=== PATIENT | male | born 1990 | race Caucasian/White ===

== ENCOUNTER 2016-10-20 16:00 | Emergency (ER) | payer OTHER ==
[~2016-10-20 16:00] MED LIST: NO HISTORICAL MEDS
--- NOTE | 2016-10-20 16:43 | EDDOCDS ---
Physician Documentation [facility] Name: Juanito Boyd Age: 26 yrs Sex: Male : 1990 Arrival Date: 10/20/2016 Time: 16:00 Bed I Private MD: Unknown Pcp Disposition: 10/20/16 16:31 Discharged to Home/Self Care. Impression: Dental caries, Dental caries, unspecified - broken tooth. - Condition is Stable. - Discharge Instructions: Dental Pain. - Prescriptions for [place] 5- 325 mg Oral Tablet - take 1 tablet by ORAL route every 6 hours As needed MDD: 4 tabs; 20 tablet. penicillin V potassium 500 mg Oral Tablet - take 1 tablet by ORAL route 4 times per day for 10 days; 40 tablet. - Medication Reconciliation, Local Pharmacy Hours form. - Follow up: Your, Dentist; When: Call to arrange an appointment; Reason: Continuance of care. - Problem is an ongoing problem. - Symptoms are unchanged. Historical: - Allergies: no known allergies; - Home Meds: 1. ibuprofen Unknown Oral Unknown every 4-6 hours (Last dose: 10/19/2016) - PMHx: none; - PSHx: Appendectomy; - Social history: Smoking status: Patient states was never smoker of tobacco. Patient/guardian denies using alcohol, street drugs, No barriers to communication noted, The patient speaks fluent Serbian, Speaks appropriately for age. - Family history: Not pertinent. - : The pt / caregiver states he / she is not on anticoagulants. Home medication list is obtained from the patient. - Exposure Risk Screening:: None identified. Vital Signs: 10/20 16:01 BP 156 / 95; Pulse 91; Resp 16; Temp 97.0(T); Pulse Ox 100% on R/A; Weight 97.52 kg / sew 214.99 lbs; Height 5 ft. 10 in. (177.80 cm); Pain 10; 16:01 Body Mass Index 30.85 (97.52 kg, 177.80 cm) sew Signatures: Mario Degroot, HOME HEALTH PROVIDER HOME HEALTH PROVIDER Kenia DegrootRN RN ld5 Lola Lund RN RN ttb MTDD
--- NOTE | 2016-10-20 16:43 | EDDOCDS ---
Nurse's Notes [facility] Name: Juanito Boyd Age: 26 yrs Sex: Male : 1990 Arrival Date: 10/20/2016 Time: 16:00 Bed I8 16 Private MD: Unknown Pcp Diagnosis: Dental caries;Dental caries, unspecified-broken tooth Presentation: 10/20 16:12 Presenting complaint: Patient states: left lower molar pain since last week. Adult ttb Sepsis Screening: The patient does not have new or worsening altered mentation. Patient's respiratory rate is less than 22. Systolic blood pressure is greater than 100. Patient has a qSOFA score of 0- Negative Sepsis Screen. Suicide/Homicide risk assessment- the patient denies having any suicidal and/or homicidal ideations and does not present with any other emotional, behavioral or mental health complaints. Status: Patient is not a social service agency director or dependent. Transition of care: patient was not received from another setting of care. 16:12 Acuity: PRIMO Level 5 ttb 16:12 Method Of Arrival: Walkin/Carried/Asstd ttb Triage Assessment: 16:13 General: Appears in no apparent distress, uncomfortable, well nourished, well groomed. ttb Pain: Location: left lower molar 06/19. HIV screening NA for this visit. EENT: Reports pain in left lower mlar. Respiratory: No deficits noted. Airway is patent Respiratory effort is even, unlabored. Derm: Skin is normal. Historical: - Allergies: no known allergies; - Home Meds: 1. ibuprofen Unknown Oral Unknown every 4-6 hours (Last dose: 10/19/2016) - PMHx: none; - PSHx: Appendectomy; - Social history: Smoking status: Patient states was never smoker of tobacco. Patient/guardian denies using alcohol, street drugs, No barriers to communication noted, The patient speaks fluent [place], Speaks appropriately for age. - Family history: Not pertinent. - : The pt / caregiver states he / she is not on anticoagulants. Home medication list is obtained from the patient. - Exposure Risk Screening:: None identified. Screenin:41 Screening information is obtained from the patient. Fall risk: No risks identified. ld5 Assistance ADL's: requires no assistance with activities of daily living. Abuse/DV Screen: The patient / caregiver reports he/she is: not in a situation that causes fear, pain or injury. Nutritional screening: No deficits noted. Advance Directives: There is no active DNR order. home support is adequate. Assessment: 16:41 General: Appears uncomfortable, Behavior is cooperative. Pain: Location: lower left ld5 second molar and lower left first molar Pain currently is 10 out of 10 on a pain scale. Neurological: Level of Consciousness is awake, alert. Respiratory: Airway is patent Respiratory effort is even, unlabored. Vital Signs: 16:01 BP 156 / 95; Pulse 91; Resp 16; Temp 97.0(T); Pulse Ox 100% on R/A; Weight 97.52 kg; sew Height 5 ft. 10 in. (177.80 cm); Pain 10/10; 16:01 Body Mass Index 30.85 (97.52 kg, 177.80 cm) [facility] [place]als: 16:01 Log In Time: October 20, 2016 at 16:00. [facility] [place] ED Course: 16:01 Patient visited by Kimi Rivera. [facility] [place] 16:01 Unknown Pcp is Private Physician. sew 16:01 Patient moved to Waiting sew 16:02 Patient visited by Kimi Rivera. sew 16:02 Patient moved to Pre RCE sew 16:13 Triage Initiated ttb 16:16 Mario Degroot FNP [facility]. ke 16:16 Patient moved to I8 / 16 ke 16:24 Patient visited by Mario Degroot FNP. ke 16:30 Your, Dentist is Referral Physician. ke 16:41 The patient / caregiver is instructed regarding the plan of care and ED course. Patient ld5 has correct armband on for positive identification. 16:41 No IV's were initiated during this patient's visit. No procedures done that require ld5 assistance. 16:43 Patient visited by Kneia Lynn RN. ld5 Order Results: There are currently no results for this order. Outcome: 16:31 Discharge ordered by Provider. ke 16:41 Discharge Assessment: Patient awake, alert and oriented x 3. No cognitive and/or ld5 functional deficits noted. Patient verbalized understanding of disposition instructions. patient administered narcotics - no. The following High Risk Discharge criteria are identified: None. Discharged to home ambulatory. Condition: stable. Discharge instructions given to patient, Instructed on discharge instructions, follow up and referral plans. medication usage, no driving heavy equipment, Demonstrated understanding of instructions, medications, Pt was receptive of discharge instructions/ teaching. Prescriptions given X 2. No special radiology studies were completed. Property :Personal belongings accompany Pt. 16:43 Patient left the ED. ld5 Signatures: Mario Degroot, TIRE CENTER SUPERVISOR Kenia DukeRN RN ld5 Miguel, Lola Mccann RN RN ttb MTDD
--- NOTE | 2016-10-22 17:43 | EDDOCDS ---
Physician Documentation [facility] Name: Juanito Boyd Age: 26 yrs Sex: Male : 1990 Arrival Date: 10/20/2016 Time: 16:00 Bed I8 Private MD: Unknown Pcp Disposition: 10/20/16 16:31 Discharged to Home/Self Care. Impression: Dental caries, Dental caries, unspecified - broken tooth. - Condition is Stable. - Discharge Instructions: Dental Pain. - Prescriptions for [place] 5- 325 mg Oral Tablet - take 1 tablet by ORAL route every 6 hours As needed MDD: 4 tabs; 20 tablet. penicillin V potassium 500 mg Oral Tablet - take 1 tablet by ORAL route 4 times per day for 10 days; 40 tablet. - Medication Reconciliation, Local Pharmacy Hours form. - Follow up: Your, Dentist; When: Call to arrange an appointment; Reason: Continuance of care. - Problem is an ongoing problem. - Symptoms are unchanged. Historical: - Allergies: no known allergies; - Home Meds: 1. ibuprofen Unknown Oral Unknown every 4-6 hours (Last dose: 10/19/2016) - PMHx: none; - PSHx: Appendectomy; - Social history: Smoking status: Patient states was never smoker of tobacco. Patient/guardian denies using alcohol, street drugs, No barriers to communication noted, The patient speaks fluent Kazakh, Speaks appropriately for age. - Family history: Not pertinent. - : The pt / caregiver states he / she is not on anticoagulants. Home medication list is obtained from the patient. - Exposure Risk Screening:: None identified. Vital Signs: 10/20 16:01 BP 156 / 95; Pulse 91; Resp 16; Temp 97.0(T); Pulse Ox 100% on R/A; Weight 97.52 kg / sew 214.99 lbs; Height 5 ft. 10 in. (177.80 cm); Pain 06/19; 16:01 Body Mass Index 30.85 (97.52 kg, 177.80 cm) sew MDM: 16:45 [facility]CLUDES [facility] Payment Agreement was scanned into [employer] and attached to record. gjb 10/21 10:39 T-Sheet-- Draft Copy was scanned into [employer] and attached to record. gb Signatures: Ginny Pelayo, Reg Reg gb Mario Degroot, Kenia StephensRN RN ld5 Lola Lund RN RN Yuli Yi The chart was reviewed and I authenticate all verbal orders and agree with the evaluation and treatment provided.Attachments: 10/20 16:45 COUNT INCLUDES THE [facility] Payment Agreement gjb 10/21 10:39 T-Sheet-- Draft Copy gb Chart Complete MTDD
--- NOTE | 2016-10-22 17:43 | EDDOCDS ---
Physician Documentation [facility] Name: Juanito Boyd Age: 26 yrs Sex: Male : 1990 Arrival Date: 10/20/2016 Time: 16:00 Bed I8 Private MD: Unknown Pcp Disposition: 10/20/16 16:31 Discharged to Home/Self Care. Impression: Dental caries, Dental caries, unspecified - broken tooth. - Condition is Stable. - Discharge Instructions: Dental Pain. - Prescriptions for [place] 5- 325 mg Oral Tablet - take 1 tablet by ORAL route every 6 hours As needed MDD: 4 tabs; 20 tablet. penicillin V potassium 500 mg Oral Tablet - take 1 tablet by ORAL route 4 times per day for 10 days; 40 tablet. - Medication Reconciliation, Local Pharmacy Hours form. - Follow up: Your, Dentist; When: Call to arrange an appointment; Reason: Continuance of care. - Problem is an ongoing problem. - Symptoms are unchanged. Historical: - Allergies: no known allergies; - Home Meds: 1. ibuprofen Unknown Oral Unknown every 4-6 hours (Last dose: 10/19/2016) - PMHx: none; - PSHx: Appendectomy; - Social history: Smoking status: Patient states was never smoker of tobacco. Patient/guardian denies using alcohol, street drugs, No barriers to communication noted, The patient speaks fluent Icelandic, Speaks appropriately for age. - Family history: Not pertinent. - : The pt / caregiver states he / she is not on anticoagulants. Home medication list is obtained from the patient. - Exposure Risk Screening:: None identified. Vital Signs: 10/20 16:01 BP 156 / 95; Pulse 91; Resp 16; Temp 97.0(T); Pulse Ox 100% on R/A; Weight 97.52 kg / sew 214.99 lbs; Height 5 ft. 10 in. (177.80 cm); Pain 06/19; 16:01 Body Mass Index 30.85 (97.52 kg, 177.80 cm) sew MDM: 16:45 [facility] Payment Agreement was scanned into [employer] and attached to record. gjb 10/21 10:39 T-Sheet-- Draft Copy was scanned into [employer] and attached to record. gb Signatures: Ginny Pelayo, Reg Reg gb Mario Degroot, Kenia StephensRN RN ld5 Lola Lund RN RN Yuli Yi The chart was reviewed and I authenticate all verbal orders and agree with the evaluation and treatment provided.Attachments: 10/20 16:45 [facility] Payment Agreement gjb 10/21 10:39 T-Sheet-- Draft Copy gb Chart Complete MTDD
--- NOTE | 2016-10-22 17:43 | EDDOCDS ---
Nurse's Notes [facility] Name: Juanito Boyd Age: 26 yrs Sex: Male : 1990 Arrival Date: 10/20/2016 Time: 16:00 Bed I8 16 Private MD: Unknown Pcp Diagnosis: Dental caries;Dental caries, unspecified-broken tooth Presentation: 10/20 16:12 Presenting complaint: Patient states: left lower molar pain since last week. Adult ttb Sepsis Screening: The patient does not have new or worsening altered mentation. Patient's respiratory rate is less than 22. Systolic blood pressure is greater than 100. Patient has a qSOFA score of 0- Negative Sepsis Screen. Suicide/Homicide risk assessment- the patient denies having any suicidal and/or homicidal ideations and does not present with any other emotional, behavioral or mental health complaints. Status: Patient is not a poultry field service technician or dependent. Transition of care: patient was not received from another setting of care. 16:12 Acuity: PRIMO Level 5 ttb 16:12 Method Of Arrival: Walkin/Carried/Asstd ttb Triage Assessment: 16:13 General: Appears in no apparent distress, uncomfortable, well nourished, well groomed. ttb Pain: Location: left lower molar 06/19. HIV screening NA for this visit. EENT: Reports pain in left lower mlar. Respiratory: No deficits noted. Airway is patent Respiratory effort is even, unlabored. Derm: Skin is normal. Historical: - Allergies: no known allergies; - Home Meds: 1. ibuprofen Unknown Oral Unknown every 4-6 hours (Last dose: 10/19/2016) - PMHx: none; - PSHx: Appendectomy; - Social history: Smoking status: Patient states was never smoker of tobacco. Patient/guardian denies using alcohol, street drugs, No barriers to communication noted, The patient speaks fluent Chadian, Speaks appropriately for age. - Family history: Not pertinent. - : The pt / caregiver states he / she is not on anticoagulants. Home medication list is obtained from the patient. - Exposure Risk Screening:: None identified. Screenin:41 Screening information is obtained from the patient. Fall risk: No risks identified. ld5 Assistance ADL's: requires no assistance with activities of daily living. Abuse/DV Screen: The patient / caregiver reports he/she is: not in a situation that causes fear, pain or injury. Nutritional screening: No deficits noted. Advance Directives: There is no active DNR order. home support is adequate. Assessment: 16:41 General: Appears uncomfortable, Behavior is cooperative. Pain: Location: lower left ld5 second molar and lower left first molar Pain currently is 10 out of 10 on a pain scale. Neurological: Level of Consciousness is awake, alert. Respiratory: Airway is patent Respiratory effort is even, unlabored. Vital Signs: 16:01 BP 156 / 95; Pulse 91; Resp 16; Temp 97.0(T); Pulse Ox 100% on R/A; Weight 97.52 kg; sew Height 5 ft. 10 in. (177.80 cm); Pain 10/10; 16:01 Body Mass Index 30.85 (97.52 kg, 177.80 cm) [facility] [place]als: 16:01 Log In Time: October 20, 2016 at 16:00. [facility] [place] Course: 16:01 Patient visited by Kimi Rivera. sew 16:01 Unknown Pcp is Private Physician. sew 16:01 Patient moved to Waiting sew 16:02 Patient visited by Kimi Rivera. sew 16:02 Patient moved to Pre RCE sew 16:13 Triage Initiated ttb 16:16 Mario Degroot FNP [facility] ke 16:16 Patient moved to I8 / 16 ke 16:24 Patient visited by Mario Degroot FNP. ke 16:30 Your, Dentist is Referral Physician. ke 16:41 The patient / caregiver is instructed regarding the plan of care and ED course. Patient ld5 has correct armband on for positive identification. 16:41 No IV's were initiated during this patient's visit. No procedures done that require ld5 assistance. 16:43 Patient visited by Kenia Lynn RN. ld5 16:45 [facility] [place] Payment Agreement was scanned into [employer] and attached to record. gjb 10/21 10:39 T-Sheet-- Draft Copy was scanned into [employer] and attached to record. gb Order Results: There are currently no results for this order. Outcome: 10/20 16:31 Discharge ordered by Provider. ke 16:41 Discharge Assessment: Patient awake, alert and oriented x 3. No cognitive and/or ld5 functional deficits noted. Patient verbalized understanding of disposition instructions. patient administered narcotics - no. The following High Risk Discharge criteria are identified: None. Discharged to home ambulatory. Condition: stable. Discharge instructions given to patient, Instructed on discharge instructions, follow up and referral plans. medication usage, no driving heavy equipment, Demonstrated understanding of instructions, medications, Pt was receptive of discharge instructions/ teaching. Prescriptions given X 2. No special radiology studies were completed. Property :Personal belongings accompany Pt. 16:43 Patient left the ED. ld5 Signatures: Ginny Pelayo, Reg Reg gb Mario Degroot, BIODIESEL DIVISION MANAGER BIODIESEL DIVISION MANAGERKenia OlivaresRN RN ld5 Kimi Rivera Teresa, RN RN Yuli Yi Chart Complete NITO
== END 2016-10-20 16:43 | disposition home or self-care (01) ==
LOC: M ED 16:00
DX: K08.89 Other specified disorders of teeth and supporting structures (principal)

== ENCOUNTER 2016-10-30 07:49 | Emergency (ER) | payer OTHER ==
--- NOTE | 2016-10-30 08:46 | REP ---
CT CERVICAL SPINE WITHOUT CONTRAST: HISTORY: Trauma. There is no acute fracture or subluxation. There is no disc bulge or herniation. The neural foramina are patent. The intervertebral discs are normal in height. Calcifications are present in the right tonsil. This is secondary to previous inflammatory disease. IMPRESSION: There is no acute fracture or subluxation. Signed by Issac Mccord MD 10/30/2016 09:10 A
--- NOTE | 2016-10-30 09:20 | REP ---
AP PELVIS AND LEFT HIP: 10/30/2016. Clinical history: Trauma. Comparison: CT abdomen and pelvis 05/31/2012. Findings: Pelvic ring is intact. SI joints, sacral ala and foramina unremarkable. Iliac wings, acetabuli, pubic rami and symphysis pubis intact. There is a bone island in the femoral head on the right. Some small osteophytes present on the left. I do not see fracture, AVN, joint space narrowing or abnormal soft tissue calcifications. Impression: 1. No fracture of the pelvis or hips. No evidence of AVN. Minor spurring femoral head and neck region. Nothing acute. Signed by Tim Ross MD 10/30/2016 05:15 P
--- NOTE | 2016-10-30 09:21 | EDDOCDS ---
Physician Documentation [facility] Name: Juanito Boyd Age: 26 yrs Sex: Male : 1990 Arrival Date: 10/30/2016 Time: 07:49 Bed I1 / M1 Private MD: Disposition: 10/30/16 09:11 Discharged to Home/Self Care. Impression: Strain of muscle, fascia and tendon at neck level, Contusion of left hip. - Condition is Stable. - Discharge Instructions: Cervical Sprain, Hip Pain. - Prescriptions for Ibuprofen 600 mg Oral Tablet - take 1 tablet by ORAL route every 6 hours As needed take with food; 30 tablet. Cyclobenzaprine 10 mg Oral Tablet - take 1 tablet by ORAL route 3 times per day As needed; 15 tablet. - Work Release Form - 2 day, Medication Reconciliation, Local Pharmacy Hours form. - Follow up: Private Physician; When: 4 - 5 days; Reason: Recheck today's complaints, Continuance of care. - Problem is new. - Symptoms are unchanged. Historical: - Allergies: no known allergies; - Home Meds: 1. none - PMHx: none; - PSHx: Appendectomy; - Social history: Smoking status: Patient states was never smoker of tobacco. No barriers to communication noted, Speaks appropriately for age. - Family history: Not pertinent. - : The pt / caregiver states he / she is not on anticoagulants. Home medication list is obtained from the patient. - Exposure Risk Screening:: None identified. Vital Signs: 10/30 08:01 BP 172 / 100; Pulse 90; Resp 16; Temp 98.2(O); Pulse Ox 98% on R/A; Weight 97.52 kg / ml6 214.99 lbs (R); Height 5 ft. 10 in. (177.80 cm) (R); Pain 4/10; 09:19 BP 147 / 96; Pulse 94; Resp 18; Temp 98.4(O); Pulse Ox 97% on R/A; kc3 08:01 Body Mass Index 30.85 (97.52 kg, 177.80 cm) ml6 MDM: 08:20 CT Spine,Cervical W/o Contrast Ordered. EDMS 08:20 Hip,AP,LAT to include Pelvis Ordered. EDMS 08:23 Financial registration complete. lg 09:03 [facility] Payment Agreement was scanned into [employer] and attached to record. lg Signatures: Dispatcher [employer] EDBossman He, Reg Reg lg Mario Degroot, INCIDENT COORDINATOR INCIDENT COORDINATOR Clinton Veloz, RN RN ml6 Eliz AcevedoRN RN kc3 The chart was reviewed and I authenticate all verbal orders and agree with the evaluation and treatment provided.Attachments: 09:03 [facility] Payment Agreement lg MTDD
--- NOTE | 2016-10-30 09:21 | EDDOCDS ---
Nurse's Notes [facility] Name: Juanito Boyd Age: 26 yrs Sex: Male : 1990 Arrival Date: 10/30/2016 Time: 07:49 Bed I1 / M1 Private MD: Diagnosis: Strain of muscle, fascia and tendon at neck level;Contusion of left hip Presentation: 10/30 07:59 Presenting complaint: Patient states: states slipped and fell down 13 steps carrying ml6 his dog, states fell on left hip and slid down steps, c/o pain in left hip and neck. Risk Factors No acute neurological deficit is noted. Adult Sepsis Screening: The patient does not have new or worsening altered mentation. Patient's respiratory rate is less than 22. Systolic blood pressure is greater than 100. Patient has a qSOFA score of 0- Negative Sepsis Screen. Suicide/Homicide risk assessment- the patient denies having any suicidal and/or homicidal ideations and does not present with any other emotional, behavioral or mental health complaints. Status: Patient is not a instructional support services director or dependent. Transition of care: patient was not received from another setting of care. Mechanism of Injury: Fall. 07:59 Acuity: PRIMO Level 3 ml6 07:59 Method Of Arrival: Walkin/Carried/Asstd ml6 Triage Assessment: 08:02 General: Appears in no apparent distress, Behavior is appropriate for age, cooperative. ml6 Pain: Location: neck Pain currently is 4 out of 10 on a pain scale. Pain does not radiate. Quality of pain is described as aching, Pain began 1 hour ago Is continuous Alleviated by nothing. Aggravated by increased activity. HIV screening NA for this visit Offered previously. Neurological: No deficits noted. Cardiovascular: No deficits noted. Capillary refill < 3 seconds is brisk in bilateral fingers toes. Respiratory: No deficits noted. Musculoskeletal: cervical spine is tender. Circulation, motion, and sensation intact Capillary refill < 3 seconds is brisk in bilateral fingers toes Signs and Symptoms of Compartment Syndrome: no signs of compartment syndrome Reports pain in neck. Historical: - Allergies: no known allergies; - Home Meds: 1. none - PMHx: none; - PSHx: Appendectomy; - Social history: Smoking status: Patient states was never smoker of tobacco. No barriers to communication noted, Speaks appropriately for age. - Family history: Not pertinent. - : The pt / caregiver states he / she is not on anticoagulants. Home medication list is obtained from the patient. - Exposure Risk Screening:: None identified. Screenin:27 Screening information is obtained from the patient. Fall risk: No risks identified. ml6 Assistance ADL's: requires no assistance with activities of daily living. Abuse/DV Screen: The patient / caregiver reports he/she is: not in a situation that causes fear, pain or injury. Nutritional screening: No deficits noted. Advance Directives: Currently, there is no health care proxy. home support is adequate. Assessment: 08:02 General: see triage assessment. Neurological: Level of Consciousness is awake, alert, ml6 Oriented to person, place, time. Neurological: Weight Trainer are equal bilaterally Moves all extremities. Full function Gait is steady, Speech is normal, Facial symmetry appears normal, Pupils are PERRLA. Neurological: Denies weakness blurred vision dizziness, difficulty swallowing, paresthesias numbness headache photophobia diplopia. Cardiovascular: No deficits noted. Respiratory: No deficits noted. 09:18 General: Appears in no apparent distress, comfortable, Behavior is appropriate for age, kc3 cooperative. Neurological: Level of Consciousness is awake, alert, obeys commands, Oriented to person, place, time. Respiratory: Respiratory effort is even, unlabored. Derm: Skin is pink, warm & dry. Vital Signs: 08:01 BP 172 / 100; Pulse 90; Resp 16; Temp 98.2(O); Pulse Ox 98% on R/A; Weight 97.52 kg ml6 (R); Height 5 ft. 10 in. (177.80 cm) (R); Pain 4/10; 09:19 BP 147 / 96; Pulse 94; Resp 18; Temp 98.4(O); Pulse Ox 97% on R/A; kc3 08:01 Body Mass Index 30.85 (97.52 kg, 177.80 cm) 6 Vitals: 08:01 Log In Time: October 30, 2016 at 07:47. 6 ED Course: 07:50 Patient visited by Oliver Dutton. mm15 07:50 Patient moved to Waiting mm15 08:01 Triage Initiated ml6 08:02 Patient moved to I1 / M1 [facility] 08:13 [facility] Degroot FNP [facility]. ke 08:13 Patient visited by Mario Degroot FNP. ke 08:13 Patient visited by Mario Degroot FNP. ke 08:33 Frannie cervical collar applied and checked by provider. ml6 08:39 Patient visited by Mario Degroot FNP. ke 09:01 Patient visited by Mario Degroot FNP. ke 09:02 The patient / caregiver is instructed regarding the plan of care and ED course. kc3 09:03 Patient name changed from Juanito\S\M\S\Boyd\S\ to Juanito\S\Alfonso\S\Boyd. EDMS 09:03 [facility] [place] Payment Agreement was scanned into [email or web address] and attached to record. 09:19 No IV's were initiated during this patient's visit. No procedures done that require kc3 assistance. 09:19 CT Spine,Cervical W/o Contrast Returned. EDMS Order Results: Radiology Order: CT Spine,Cervical W/o Contrast Test: CT Spine,Cervical W/o Contrast REASON FOR EXAMINATION: Trauma; CT CERVICAL SPINE WITHOUT CONTRAST:; ; HISTORY: Trauma.; ; There is no acute fracture or subluxation. There is no disc bulge or herniation.; The neural foramina are patent. The intervertebral discs are normal in height.; Calcifications are present in the right tonsil. This is secondary to previous; inflammatory disease.; ; IMPRESSION:; ; There is no acute fracture or subluxation.; ; ; Signed by; Issac Mccord MD 10/30/2016 09:10 A; Outcome: 09:03 CT Study completed. kc3 09:11 Discharge ordered by Provider. ke 09:19 Discharge Assessment: Patient awake, alert and oriented x 3. No cognitive and/or kc3 functional deficits noted. Patient verbalized understanding of disposition instructions. patient administered narcotics - no. The following High Risk Discharge criteria are identified: None. Discharged to home ambulatory. Condition: stable. Discharge instructions given to patient, Instructed on discharge instructions, follow up and referral plans. medication usage, Demonstrated understanding of instructions, medications, Pt was receptive of discharge instructions/ teaching. Prescriptions given X 2, Work note provided to patient. Property :Personal belongings accompany Pt. 09:20 Patient left the ED. kc3 Signatures: Dispatcher [employer] EDAZ Bossman Benz, Matt Reg Mario Degroot FNP FNP ke Lowe, Clinton, RN RN ml6 Oliver Dutton mm15 Eliz Acevedo,RN RN kc3 HALEYD
--- NOTE | 2016-11-01 10:21 | EDDOCDS ---
Physician Documentation [facility] Name: Juanito Boyd Age: 26 yrs Sex: Male : 1990 Arrival Date: 10/30/2016 Time: 07:49 Bed I1 / M1 Private MD: Disposition: 10/30/16 09:11 Discharged to Home/Self Care. Impression: Strain of muscle, fascia and tendon at neck level, Contusion of left hip. - Condition is Stable. - Discharge Instructions: Cervical Sprain, Hip Pain. - Prescriptions for Ibuprofen 600 mg Oral Tablet - take 1 tablet by ORAL route every 6 hours As needed take with food; 30 tablet. Cyclobenzaprine 10 mg Oral Tablet - take 1 tablet by ORAL route 3 times per day As needed; 15 tablet. - Work Release Form - 2 day, Medication Reconciliation, Local Pharmacy Hours form. - Follow up: Private Physician; When: 4 - 5 days; Reason: Recheck today's complaints, Continuance of care. - Problem is new. - Symptoms are unchanged. Historical: - Allergies: no known allergies; - Home Meds: 1. none - PMHx: none; - PSHx: Appendectomy; - Social history: Smoking status: Patient states was never smoker of tobacco. No barriers to communication noted, Speaks appropriately for age. - Family history: Not pertinent. - : The pt / caregiver states he / she is not on anticoagulants. Home medication list is obtained from the patient. - Exposure Risk Screening:: None identified. Vital Signs: 10/30 08:01 BP 172 / 100; Pulse 90; Resp 16; Temp 98.2(O); Pulse Ox 98% on R/A; Weight 97.52 kg / ml6 214.99 lbs (R); Height 5 ft. 10 in. (177.80 cm) (R); Pain 4/10; 09:19 BP 147 / 96; Pulse 94; Resp 18; Temp 98.4(O); Pulse Ox 97% on R/A; kc3 08:01 Body Mass Index 30.85 (97.52 kg, 177.80 cm) ml6 MDM: 08:20 CT Spine,Cervical W/o Contrast Ordered. EDMS 08:20 Hip,AP,LAT to include Pelvis Ordered. EDMS 08:23 Financial registration complete. lg 09:03 [facility] Payment Agreement was scanned into [email or web address] and attached to record. lg 14:56 T-Sheet-- Draft Copy was scanned into [employer] and attached to record. gb Signatures: Dispatcher [employer] EDMS Ginny Pelayo, Reg Reg gb Bossman Benz, Reg Reg lg Mario Degroot, PRODUCT SAFETY TEST ENGINEER PRODUCT SAFETY TEST ENGINEER Clinton Veloz, RN RN ml6 Eliz AcevedoRN RN kc3 The chart was reviewed and I authenticate all verbal orders and agree with the evaluation and treatment provided.Attachments: 09:03 [facility] Payment Agreement lg 14:56 T-Sheet-- Draft Copy gb Chart Complete MTDD
--- NOTE | 2016-11-01 10:21 | EDDOCDS ---
Nurse's Notes [facility] Name: Juanito Boyd Age: 26 yrs Sex: Male : 1990 Arrival Date: 10/30/2016 Time: 07:49 Bed I1 / M1 Private MD: Diagnosis: Strain of muscle, fascia and tendon at neck level;Contusion of left hip Presentation: 10/30 07:59 Presenting complaint: Patient states: states slipped and fell down 13 steps carrying ml6 his dog, states fell on left hip and slid down steps, c/o pain in left hip and neck. Risk Factors No acute neurological deficit is noted. Adult Sepsis Screening: The patient does not have new or worsening altered mentation. Patient's respiratory rate is less than 22. Systolic blood pressure is greater than 100. Patient has a qSOFA score of 0- Negative Sepsis Screen. Suicide/Homicide risk assessment- the patient denies having any suicidal and/or homicidal ideations and does not present with any other emotional, behavioral or mental health complaints. Status: Patient is not a guest services lead or dependent. Transition of care: patient was not received from another setting of care. Mechanism of Injury: Fall. 07:59 Acuity: PRIMO Level 3 ml6 07:59 Method Of Arrival: Walkin/Carried/Asstd ml6 Triage Assessment: 08:02 General: Appears in no apparent distress, Behavior is appropriate for age, cooperative. ml6 Pain: Location: neck Pain currently is 4 out of 10 on a pain scale. Pain does not radiate. Quality of pain is described as aching, Pain began 1 hour ago Is continuous Alleviated by nothing. Aggravated by increased activity. HIV screening NA for this visit Offered previously. Neurological: No deficits noted. Cardiovascular: No deficits noted. Capillary refill < 3 seconds is brisk in bilateral fingers toes. Respiratory: No deficits noted. Musculoskeletal: cervical spine is tender. Circulation, motion, and sensation intact Capillary refill < 3 seconds is brisk in bilateral fingers toes Signs and Symptoms of Compartment Syndrome: no signs of compartment syndrome Reports pain in neck. Historical: - Allergies: no known allergies; - Home Meds: 1. none - PMHx: none; - PSHx: Appendectomy; - Social history: Smoking status: Patient states was never smoker of tobacco. No barriers to communication noted, Speaks appropriately for age. - Family history: Not pertinent. - : The pt / caregiver states he / she is not on anticoagulants. Home medication list is obtained from the patient. - Exposure Risk Screening:: None identified. Screenin:27 Screening information is obtained from the patient. Fall risk: No risks identified. ml6 Assistance ADL's: requires no assistance with activities of daily living. Abuse/DV Screen: The patient / caregiver reports he/she is: not in a situation that causes fear, pain or injury. Nutritional screening: No deficits noted. Advance Directives: Currently, there is no health care proxy. home support is adequate. Assessment: 08:02 General: see triage assessment. Neurological: Level of Consciousness is awake, alert, ml6 Oriented to person, place, time. Neurological: Glass Smoother are equal bilaterally Moves all extremities. Full function Gait is steady, Speech is normal, Facial symmetry appears normal, Pupils are PERRLA. Neurological: Denies weakness blurred vision dizziness, difficulty swallowing, paresthesias numbness headache photophobia diplopia. Cardiovascular: No deficits noted. Respiratory: No deficits noted. 09:18 General: Appears in no apparent distress, comfortable, Behavior is appropriate for age, kc3 cooperative. Neurological: Level of Consciousness is awake, alert, obeys commands, Oriented to person, place, time. Respiratory: Respiratory effort is even, unlabored. Derm: Skin is pink, warm & dry. Vital Signs: 08:01 BP 172 / 100; Pulse 90; Resp 16; Temp 98.2(O); Pulse Ox 98% on R/A; Weight 97.52 kg ml6 (R); Height 5 ft. 10 in. (177.80 cm) (R); Pain 4/10; 09:19 BP 147 / 96; Pulse 94; Resp 18; Temp 98.4(O); Pulse Ox 97% on R/A; kc3 08:01 Body Mass Index 30.85 (97.52 kg, 177.80 cm) 6 Vitals: 08:01 Log In Time: October 30, 2016 at 07:47. 6 ED Course: 07:50 Patient visited by Oliver Dutton. mm15 07:50 Patient moved to Waiting mm15 08:01 Triage Initiated ml6 08:02 Patient moved to I1 / M1 [facility] 08:13 [facility] Degroot FNP [facility] ke 08:13 Patient visited by Mario Degroot FNP. ke 08:13 Patient visited by Mario Degroot FNP. ke 08:33 Frannie cervical collar applied and checked by provider. ml6 08:39 Patient visited by Mario Degroot FNP. ke 09:01 Patient visited by Mario Degroot FNP. ke 09:02 The patient / caregiver is instructed regarding the plan of care and ED course. kc3 09:03 Patient name changed from Juanito\S\M\S\Boyd\S\ to Juanito\S\Alfonso\S\Boyd. EDMS 09:03 [facility] [place] Agreement was scanned into [employer] and attached to record. lg 09:19 No IV's were initiated during this patient's visit. No procedures done that require kc3 assistance. 09:19 CT Spine,Cervical W/o Contrast Returned. EDMS 09:55 Hip,AP,LAT to include Pelvis Returned. EDMS 14:56 T-Sheet-- Draft Copy was scanned into [employer] and attached to record. gb Order Results: Radiology Order: CT Spine,Cervical W/o Contrast Test: CT Spine,Cervical W/o Contrast REASON FOR EXAMINATION: Trauma; CT CERVICAL SPINE WITHOUT CONTRAST:; ; HISTORY: Trauma.; ; There is no acute fracture or subluxation. There is no disc bulge or herniation.; The neural foramina are patent. The intervertebral discs are normal in height.; Calcifications are present in the right tonsil. This is secondary to previous; inflammatory disease.; ; IMPRESSION:; ; There is no acute fracture or subluxation.; ; ; Signed by; Issac Mccord MD 10/30/2016 09:10 A; Radiology Order: Hip,AP,LAT to include Pelvis Test: Hip,AP,LAT to include Pelvis REASON FOR EXAMINATION: Trauma; AP PELVIS AND LEFT HIP: 10/30/2016.; ; Clinical history: Trauma.; ; Comparison: CT abdomen and pelvis 05/31/2012.; ; Findings: Pelvic ring is intact. SI joints, sacral ala and foramina; unremarkable. Iliac wings, acetabuli, pubic rami and symphysis pubis intact.; There is a bone island in the femoral head on the right. Some small osteophytes; present on the left. I do not see fracture, AVN, joint space narrowing or; abnormal soft tissue calcifications.; ; Impression:; ; 1. No fracture of the pelvis or hips. No evidence of AVN. Minor spurring; femoral head and neck region. Nothing acute.; ; ; Signed by; Tim Ross MD 10/30/2016 05:15 P; Outcome: 09:03 CT Study completed. kc3 09:11 Discharge ordered by Provider. ke 09:19 Discharge Assessment: Patient awake, alert and oriented x 3. No cognitive and/or kc3 functional deficits noted. Patient verbalized understanding of disposition instructions. patient administered narcotics - no. The following High Risk Discharge criteria are identified: None. Discharged to home ambulatory. Condition: stable. Discharge instructions given to patient, Instructed on discharge instructions, follow up and referral plans. medication usage, Demonstrated understanding of instructions, medications, Pt was receptive of discharge instructions/ teaching. Prescriptions given X 2, Work note provided to patient. Property :Personal belongings accompany Pt. 09:20 Patient left the ED. kc3 Signatures: Dispatcher MedHost EDMS Ginny Pelayo, Reg Reg gb Bossman Benz, Reg Reg lg Mario Degroot, CHIEF DIGITAL OFFICER CHIEF DIGITAL OFFICER Clinton Veloz, RN RN ml6 Oliver Dutton mm15 Eliz Acevedo,RN RN kc3 Chart Complete MTDD
--- NOTE | 2016-11-01 10:21 | EDDOCDS ---
Physician Documentation [facility] Name: Juanito Boyd Age: 26 yrs Sex: Male : 1990 Arrival Date: 10/30/2016 Time: 07:49 Bed I1 / M1 Private MD: Disposition: 10/30/16 09:11 Discharged to Home/Self Care. Impression: Strain of muscle, fascia and tendon at neck level, Contusion of left hip. - Condition is Stable. - Discharge Instructions: Cervical Sprain, Hip Pain. - Prescriptions for Ibuprofen 600 mg Oral Tablet - take 1 tablet by ORAL route every 6 hours As needed take with food; 30 tablet. Cyclobenzaprine 10 mg Oral Tablet - take 1 tablet by ORAL route 3 times per day As needed; 15 tablet. - Work Release Form - 2 day, Medication Reconciliation, Local Pharmacy Hours form. - Follow up: Private Physician; When: 4 - 5 days; Reason: Recheck today's complaints, Continuance of care. - Problem is new. - Symptoms are unchanged. Historical: - Allergies: no known allergies; - Home Meds: 1. none - PMHx: none; - PSHx: Appendectomy; - Social history: Smoking status: Patient states was never smoker of tobacco. No barriers to communication noted, Speaks appropriately for age. - Family history: Not pertinent. - : The pt / caregiver states he / she is not on anticoagulants. Home medication list is obtained from the patient. - Exposure Risk Screening:: None identified. Vital Signs: 10/30 08:01 BP 172 / 100; Pulse 90; Resp 16; Temp 98.2(O); Pulse Ox 98% on R/A; Weight 97.52 kg / ml6 214.99 lbs (R); Height 5 ft. 10 in. (177.80 cm) (R); Pain 4/10; 09:19 BP 147 / 96; Pulse 94; Resp 18; Temp 98.4(O); Pulse Ox 97% on R/A; kc3 08:01 Body Mass Index 30.85 (97.52 kg, 177.80 cm) ml6 MDM: 08:20 CT Spine,Cervical W/o Contrast Ordered. EDMS 08:20 Hip,AP,LAT to include Pelvis Ordered. EDMS 08:23 Financial registration complete. lg 09:03 [facility] Payment Agreement was scanned into [employer] and attached to record. lg 14:56 T-Sheet-- Draft Copy was scanned into [employer] and attached to record. gb Signatures: Dispatcher [employer] EDMS Ginny Pelayo, Reg Reg gb Bossman Benz, Reg Reg lg Mario Degroot, FIREMAN FIREMAN Clinton Veloz, RN RN ml6 Eliz AcevedoRN RN kc3 The chart was reviewed and I authenticate all verbal orders and agree with the evaluation and treatment provided.Attachments: 09:03 [facility] Payment Agreement lg 14:56 T-Sheet-- Draft Copy gb Chart Complete MTDD
== END 2016-10-30 09:20 | disposition home or self-care (01) ==
LOC: M ED 07:49
DX: S13.9XXA Sprain of joints and ligaments of unspecified parts of neck, initial encounter (principal); S70.02XA Contusion of left hip, initial encounter; W10.9XXA Fall (on) (from) unspecified stairs and steps, initial encounter; Y92.019 Unspecified place in single-family (private) house as the place of occurrence of the external cause; Y93.9 Activity, unspecified; Y99.9 Unspecified external cause status

== ENCOUNTER → 2016-12-21 | Outpatient (CLI) | payer OTHER ==
[~2016-12-21] MED LIST changes: +E-Z PAQUE 60% w/v SUSP 355ML BOTTLE As Ordered ONE; +E-Z-GAS II EFFERVESCENT PACKET (SODIUM BICARB./CITRIC ACID/SIMETHICONE) As Ordered ONE; +E-Z-HD 98% w/w 340GM SUSP BTL As Ordered ONE
--- NOTE | 2016-12-21 13:17 | REP ---
BARIUM SWALLOW, ESOPHAGRAM WITH PA CHEST: 12/21/2016. Clinical history: Regurgitation of food, reflux symptoms. No comparison study. Findings: The fishing line winding machine operator PA chest shows lung celaya well inflated and clear. Heart, mediastinal and hilar contours normal. Airway intact. Bones unremarkable. The AP and lateral CINE esophagram images show normal elevation of the cricopharyngeus muscle with no laryngeal penetration or aspiration. The thoracic esophagus shows no stricture, mass or any abnormal extrinsic mass impression with prone oblique swallows demonstrated. No hiatal hernia. Only minimal dysmotility noted with some secondary contractions. Those portions of the stomach seen on this study were unremarkable. There were a few episodes of reflux observed fluoroscopically during the examination. Impression: 1. There is some mild dysmotility of the thoracic esophagus without persistent stricture or mucosal abnormality. No mass or extrinsic mass effect seen. 2. Intermittent reflux observed through a patulous gastroesophageal junction without hiatal hernia. 3. The normal oral pharyngeal transfer noted promptly with appropriate elevation of the cricopharyngeus and no cervical esophageal stricture. 4. Fluoroscopy time: 2 min 2 sec. Signed by Tim Ross MD 12/21/2016 03:00 P
== END ==
LOC: M RAD 07:51
PROVIDERS: ATTEND Family Medicine
DX: R11.10 Vomiting, unspecified (principal)

== ENCOUNTER → 2017-03-21 | Outpatient (REF) | payer OTHER ==
[~2017-03-21] MED LIST changes: +ALLE60TA69 PO; -E-Z PAQUE 60% w/v SUSP 355ML BOTTLE As Ordered ONE; -E-Z-GAS II EFFERVESCENT PACKET (SODIUM BICARB./CITRIC ACID/SIMETHICONE) As Ordered ONE; -E-Z-HD 98% w/w 340GM SUSP BTL As Ordered ONE
[2017-03-21 16:21] LABS: ALBUMIN 4.3 GM/DL (3.2-5.2); ALKALINE PHOSPHATASE 81 U/L (45-117); ALT/SGPT 30 U/L (12-78); ANION GAP 5 MEQ/L (8-16); AST/SGOT 17 U/L (15-37); BILIRUBIN,TOTAL 0.7 MG/DL (0.2-1.0); BLOOD UREA NITROGEN 10 MG/DL (7-18); CALCIUM LEVEL 9.2 MG/DL (8.5-10.1); CARBON DIOXIDE LEVEL 31 MEQ/L (21-32); CHLORIDE LEVEL 105 MEQ/L (98-107); CHOLESTEROL LEVEL 165 MG/DL (<200); GLOMERULAR FILTRATION RATE > 60.0 (>60); GLUCOSE, FASTING 78 MG/DL (70-105); POTASSIUM SERUM 4.4 MEQ/L (3.5-5.1); SODIUM LEVEL 141 MEQ/L (136-145); TOTAL PROTEIN 7.6 GM/DL (6.4-8.2); TRIGLYCERIDES LEVEL 118 MG/DL (<150)
== END ==
LOC: M LABDRAW1 15:19
PROVIDERS: ATTEND Family Medicine
DX: E66.9 Obesity, unspecified (principal)

== ENCOUNTER → 2017-03-26 | Outpatient (CLI) | payer OTHER ==
--- NOTE | 2017-04-01 07:43 | SLEEPCENT ---
DATE OF PROCEDURE: 03/26/2017 ORDERED BY: RONY Grady Nocturnal polysomnography was performed for the titration of pressure therapy in this patient with obstructive sleep apnea syndrome intolerant of an auto titratable device. The patient was diagnosed based on home testing in 2015. For testing, the patient was fit with a ResMed Mirage FX nasal mask of standard size. 5 cm of water pressure were applied to the circuit and the lights were extinguished. 8 hours and 4 minutes of data were reviewed. There were 399 minutes of sleep identified. Sleep latency was prolonged at 69 minutes. Rapid eye movement (REM) latency was normal at 78 minutes. Sleep architecture improved with optimal pressure therapy. There were 4 REM periods appreciated. Overall sleep efficiency was good at 83.4%. The patient's EKG showed a sinus rhythm with an average heart rate of 76 beats per minute. EEG showed reasonably normal waveforms for awake and sleep stages. Respiratory events were found best palliated with CPAP at pressure of 6. CPAP tolerance was good. IMPRESSION: Obstructive sleep apnea syndrome (G47.33). RECOMMENDATION: Nightly use of pressure therapy 6 cm of water.
== END ==
LOC: M SLEEP 20:02
PROVIDERS: ATTEND Nurse Practitioner Adult Health
DX: G47.33 Obstructive sleep apnea (adult) (pediatric) (principal)

== ENCOUNTER 2017-05-21 07:33 | Day surgery (SDC) | payer OTHER ==
[~2017-05-21] VITALS: Ht 177.8 cm; Wt 117.9 kg
[~2017-05-21 07:33] MED LIST changes: +LIDOCAINE 2% INJ 100 MG/5 ML SDV (FOR ANES.) As Ordered ONE; +LIDOCAINE W/EPINEPHRINE 1% 20ML VIAL As Ordered ONE; +METHYLENE BLUE 0.5% (5MG/ML) 10 ML AMP (PROVAYBLUE)(Q9968 PER 1MG) As Ordered ONE; +MIDAZOLAM INJ 2 MG/2 ML VIAL (J2250) As Ordered ONE; +OXYMETAZOLINE NASAL SPRAY (AFRIN) As Ordered ONE; +PROPOFOL 200 MG/20 ML VIAL As Ordered ONE; +fentaNYL 100 MCG/2 ML INJECTION (J3010) As Ordered ONE
[2017-05-21] MEDS ORDERED: LIDOCAINE W/EPINEPHRINE 1% 20ML VIAL As Ordered ONE ×2 (08:13→08:14)
[2017-05-21] MEDS ORDERED: fentaNYL 100 MCG/2 ML INJECTION (J3010) As Ordered ONE (08:43)
[2017-05-21] MEDS ORDERED: LABETALOL HCL 100 MG/20 ML VIAL As Ordered ONE (08:54)
[2017-05-21] MEDS ORDERED: ONDANSETRON 4MG/2ML VIAL (J2405) As Ordered ONE (09:04)
[2017-05-21] MEDS ORDERED: dexameTHASONE 4 MG/ML 1ML VIAL (J1100) As Ordered ONE (09:04)
[2017-05-21] MEDS ORDERED: PERCOCET 5MG/325MG TAB PO PRN ×2 (10:00)
[2017-05-21] MEDS ORDERED: LR 1,000 ML IV SCH (10:00)
[2017-05-21] MEDS ORDERED: ONDANSETRON 4MG/2ML VIAL (J2405) IV PRN (10:00)
[2017-05-21] MEDS ORDERED: fentaNYL 100 MCG/2 ML INJECTION (J3010) IV PRN (10:00)
[2017-05-21] MEDS ORDERED: LABETALOL HCL 100 MG/20 ML VIAL IV SCH (10:00)
[2017-05-21] MEDS ORDERED: IBUPROFEN 800 MG TAB PO PRN (10:00)
[2017-05-21 12:25] VITALS: BP 135/95
--- NOTE | 2017-05-21 23:26 | RO ---
DATE OF PROCEDURE: 05/21/2017 PREOPERATIVE DIAGNOSES: 1. Deviated septum. 2. Chronic rhinitis. POSTOPERATIVE DIAGNOSES: 1. Deviated septum. 2. Chronic rhinitis. OPERATIVE PROCEDURE: Septoplasty. Partial reduction of inferior turbinates. SURGEON: Robby Gavin MD DOUBLE NEEDLE OPERATOR: ANESTHESIA: General endotracheal. INDICATIONS: A 27-year-old with a long history of nasal obstruction. DESCRIPTION OF PROCEDURE: With satisfactory general endotracheal anesthesia administrated, the patient placed in the usual position for head and neck surgery. Nose was prepared for surgery by placing cotton-soaked pledgets with Afrin solution into the nasal cavity bilaterally. 1% Xylocaine with 1:100,000 epinephrine was used to inject the nasal septum and inferior turbinates. A throat pack was placed. A Rip incision was made on the left side of the nose. A mucoperichondrial flap and envelope was created on the left side of the nasal septum and carried down to the junction of the bony and cartilaginous septum. This was then with an elevator, and an envelope was then created on the right side of the septum. A Efrain scissors was used to make a cut high in the perpendicular plate in the midportion of the vomer, and a central segment of the bony septum was resected. Next, with the round knife on the Gallia elevator, a strip of cartilage was resected from the floor of the nose, mobilizing the quadrilateral cartilage and creating a swinging door. Then, a central segment of cartilaginous septum was resected, preserving a 1 cm dorsal and caudal strut. Double-action rongeur was used to take down deflected portions of the perpendicular plate, as well. Finally, the maxillary crest spur was taken down after elevating mucoperiosteum off both sides of it with a chisel. A segment of the resected cartilage was morselized and placed back into the septal envelope. The incision was closed using an interrupted #5-0 chromic suture. Then, a #4-0 plain suture was placed in a [id number] fashion through the two leaves of mucoperichondrium to appose them. Next, the inferior turbinates were medially infractured. A #15 blade was used to make an incision on the anterior tip of the inferior turbinate. With a Gallia elevator, a mucoperiosteal tunnel was created on the medial side of the turbinate. Then, the microdebrider with a 2.9 mm blade was inserted into the tunnel, and the underlying turbinate bone was weakened and partially resected using the microdebrider. Then, the turbinate was laterally outfractured. The posteroinferior tip of the turbinate was then cauterized with suction cautery. Completing the surgery, Kaiser splints were placed into the nose and sewn to the columella with a #2-0 Prolene suture. The pharyngeal pack was removed. Throat suctioned. The patient was then awakened, extubated, sent to recovery in satisfactory condition. He will be discharged home on Tylox for pain and doxycycline 100 mg twice a day. He will seen back in the office in 3 days.
== END 2017-05-21 11:55 | disposition home or self-care (01) ==
LOC: M SDC 07:33
PROVIDERS: ATTEND Specialist
DX: J34.2 Deviated nasal septum (principal); J31.0 Chronic rhinitis; K21.9 Gastro-esophageal reflux disease without esophagitis; G47.30 Sleep apnea, unspecified; Z79.899 Other long term (current) drug therapy

== ENCOUNTER 2017-08-18 16:47 | Emergency (ER) | payer OTHER ==
[~2017-08-18] VITALS: Ht 177.8 cm; Wt 118.2 kg
[~2017-08-18 16:47] MED LIST changes: -ZOFR4TAB3 PO
[2017-08-18] MEDS ORDERED: NS 1,000 ML IV SCH (17:44)
[2017-08-18] MEDS ORDERED: GASTROGRAFIN SOLUTION 30ML (Q9963) As Ordered ONE (17:52)
[2017-08-18] MEDS ORDERED: GASTROGRAFIN SOLUTION 30ML (Q9963) PO ONE ×2 (18:00→18:30)
[2017-08-18] MEDS ORDERED: MORPHINE 4 MG/ML 1ML SYRINGE IV ONE (18:00)
[2017-08-18 18:04] LABS: BASO % 0.4 % (0.0-1.0); EOS % 0.4 % (0.0-3.0); IMMATURE GRANULOCYTE % 0.4 % (0-0); LYMPH # 2.3 10^3/uL (1.5-6.5); LYMPH % 25.8 % (24.0-44.0); MEAN CORPUSCULAR HEMOGLOBIN 29.3 pg (27.0-33.0); MEAN CORPUSCULAR HGB CONC 34.5 g/dl (32.0-36.5); MONO # 1.8 10^3/uL (0.0-0.8); MONO % 19.4 % (0.0-5.0); NEUTROPHILS # 4.9 10^3/uL (1.8-7.7); NEUTROPHILS % 53.6 % (36.0-66.0); PLATELET COUNT, AUTOMATED 306 10^3/uL (150-450); RED CELL DISTRIBUTION WIDTH 12.1 % (11.5-14.5); WHITE BLOOD COUNT 9.1 10^3/uL (4.0-10.0)
[2017-08-18 18:21] LABS: ALBUMIN/GLOBULIN RATIO 0.87 (1.00-1.93); ALKALINE PHOSPHATASE 65 U/L (45-117); ALT/SGPT 39 U/L (12-78); ANION GAP 9 MEQ/L (8-16); AST/SGOT 18 U/L (7-37); BILIRUBIN,DIRECT 0.2 MG/DL (0.0-0.2); BILIRUBIN,TOTAL 0.8 MG/DL (0.2-1.0); BLOOD UREA NITROGEN 16 MG/DL (7-18); CALCIUM LEVEL 8.9 MG/DL (8.5-10.1); CARBON DIOXIDE LEVEL 27 MEQ/L (21-32); CHLORIDE LEVEL 101 MEQ/L (98-107); CREATININE FOR GFR 1.09 MG/DL (0.70-1.30); GLOMERULAR FILTRATION RATE > 60.0 (>60); GLUCOSE, FASTING 102 MG/DL (70-105); POTASSIUM SERUM 3.5 MEQ/L (3.5-5.1); SODIUM LEVEL 137 MEQ/L (136-145); TOTAL PROTEIN 8.6 GM/DL (6.4-8.2)
[2017-08-18] MEDS ORDERED: ISOVUE-370 76% 100ML VIAL (Q9967) As Ordered ONE (19:10)
[2017-08-18 19:35] LABS: MUCUS, URINE RFX MODERATE (NEGATIVE); SPECIFIC GRAVITY UR AUTO RFX 1.028 (1.002-1.035); SQUAM EPITHELIAL CELL UR AURFX 0 /HPF (0-6)
--- NOTE | 2017-08-18 20:10 | REPUSA ---
CT of the abdomen and pelvis with contrast Clinical statement: Pain. Technique: Multiple axial CT images were obtained from the base of the lungs through the floor of the pelvis utilizing 5 mm axial slices after administration of oral and nonionic intravenous contrast. C oronal and sagittal reconstructions were also obtained. Comparison: 05/31/2012. Findings: Chest: The visualized lung bases are clear. Abdomen: The liver, spleen, pancreas, kidneys, gallbladder, and adrenal glands are unremarkable. The aorta is within normal limits. There is no evidence of abdominal lymphadenopathy or ascites. Pelvis: There is mild fluid distention of the proximal small bowel. There is no focal evidence of obs truction. The urinary bladder is within normal limits. The other pelvic structures appear grossly int act. There is no evidence of pelvic lymphadenopathy or ascites. Bones: There are no suspicious osseous abnormalities seen. Impression: 1. Mild small bowel ileus. No focal obstructive or inflammatory bowel changes.
[2017-08-18] MEDS ORDERED: ZOFR4TAB3 PO (20:46)
[2017-08-18 20:58] VITALS: BP 131/92
== END 2017-08-18 21:13 | disposition home or self-care (01) ==
LOC: M ED 16:47
DX: K56.7 Ileus, unspecified (principal); Z79.899 Other long term (current) drug therapy
CPT/HCPCS: 74177; 80048; 80076; 81001; 83690; 85025; 87507; 96374; 99284; Q9963; Q9967

== ENCOUNTER → 2017-08-18 | Outpatient (CLI) | payer OTHER ==
[~2017-08-18] MED LIST changes: -LIDOCAINE 2% INJ 100 MG/5 ML SDV (FOR ANES.) As Ordered ONE; -LIDOCAINE W/EPINEPHRINE 1% 20ML VIAL As Ordered ONE; -METHYLENE BLUE 0.5% (5MG/ML) 10 ML AMP (PROVAYBLUE)(Q9968 PER 1MG) As Ordered ONE; -MIDAZOLAM INJ 2 MG/2 ML VIAL (J2250) As Ordered ONE; -OXYMETAZOLINE NASAL SPRAY (AFRIN) As Ordered ONE; -PROPOFOL 200 MG/20 ML VIAL As Ordered ONE; +ZOFR4TAB3 PO; -fentaNYL 100 MCG/2 ML INJECTION (J3010) As Ordered ONE
--- NOTE | 2017-08-19 14:52 | REP ---
REASON: Epigastric tenderness. Supine and upright views of the abdomen show a few mildly dilated gas filled small bowel loops with air fluid levels seen in the left upper quadrant. There is no free air. The accompanying frontal view of the chest is within normal limits. IMPRESSION: Ileus versus early small bowel obstruction. Correlate clinically with appropriate followup. Signed by Buck Castellano DO 08/19/2017 02:57 P
== END ==
LOC: M WUC 16:11
PROVIDERS: ATTEND Physician Assistant
DX: R10.816 Epigastric abdominal tenderness (principal)

== ENCOUNTER → 2017-08-18 | Outpatient (CLI) | payer OTHER ==
[2017-08-18 18:21] LABS: BASO % 0.4 % (0.0-1.0); EOS % 0.3 % (0.0-3.0); IMMATURE GRANULOCYTE % 0.5 % (0-0); LYMPH # 2.3 10^3/uL (1.5-6.5); LYMPH % 23.8 % (24.0-44.0); MEAN CORPUSCULAR HGB CONC 33.9 g/dl (32.0-36.5); MEAN CORPUSCULAR VOLUME 85.4 fl (80.0-96.0); MONO # 1.8 10^3/uL (0.0-0.8); MONO % 18.3 % (0.0-5.0); NEUTROPHILS # 5.4 10^3/uL (1.8-7.7); NEUTROPHILS % 56.7 % (36.0-66.0); PLATELET COUNT, AUTOMATED 308 10^3/uL (150-450); RED CELL DISTRIBUTION WIDTH 12.2 % (11.5-14.5); WHITE BLOOD COUNT 9.6 10^3/uL (4.0-10.0)
[2017-08-18 18:29] LABS: ALBUMIN 4.1 GM/DL (3.2-5.2); ALKALINE PHOSPHATASE 66 U/L (45-117); ALT/SGPT 38 U/L (12-78); ANION GAP 8 MEQ/L (8-16); AST/SGOT 21 U/L (7-37); BILIRUBIN,TOTAL 0.9 MG/DL (0.2-1.0); BLOOD UREA NITROGEN 17 MG/DL (7-18); CALCIUM LEVEL 9.1 MG/DL (8.5-10.1); CARBON DIOXIDE LEVEL 30 MEQ/L (21-32); CHLORIDE LEVEL 99 MEQ/L (98-107); CREATININE FOR GFR 1.24 MG/DL (0.70-1.30); GLOMERULAR FILTRATION RATE > 60.0 (>60); GLUCOSE, FASTING 105 MG/DL (70-105); POTASSIUM SERUM 3.9 MEQ/L (3.5-5.1); SODIUM LEVEL 137 MEQ/L (136-145); TOTAL PROTEIN 8.2 GM/DL (6.4-8.2)
== END ==
LOC: M WUC 16:06
PROVIDERS: ATTEND Physician Assistant
DX: R10.816 Epigastric abdominal tenderness (principal)

== ENCOUNTER 2017-08-28 10:26 | Emergency (ER) | payer OTHER ==
[~2017-08-28] VITALS: Ht 177.8 cm; Wt 118.2 kg
[~2017-08-28 10:26] MED LIST changes: +ZOFR4TAB3 PO
[2017-08-28] MEDS ORDERED: PREPPAD EX (10:37)
[2017-08-28] MEDS ORDERED: MORPHINE 4 MG/ML 1ML SYRINGE IV ONE (11:30)
[2017-08-28 12:05] LABS: BASO # 0.1 10^3/uL (0.0-0.2); BASO % 0.4 % (0.0-1.0); EOS # 0.1 10^3/uL (0.0-0.50); EOS % 0.8 % (0.0-3.0); IMMATURE GRANULOCYTE % 0.6 % (0-0); LYMPH # 1.8 10^3/uL (1.5-6.5); LYMPH % 12.6 % (24.0-44.0); MEAN CORPUSCULAR HEMOGLOBIN 29.4 pg (27.0-33.0); MEAN CORPUSCULAR HGB CONC 34.1 g/dl (32.0-36.5); MEAN CORPUSCULAR VOLUME 86.1 fl (80.0-96.0); MONO # 1.6 10^3/uL (0.0-0.8); MONO % 11.4 % (0.0-5.0); NEUTROPHILS # 10.5 10^3/uL (1.8-7.7); NEUTROPHILS % 74.2 % (36.0-66.0); PLATELET COUNT, AUTOMATED 416 10^3/uL (150-450); RED CELL DISTRIBUTION WIDTH 11.9 % (11.5-14.5); WHITE BLOOD COUNT 14.2 10^3/uL (4.0-10.0)
[2017-08-28 12:30] LABS: ALBUMIN 3.8 GM/DL (3.2-5.2); ALBUMIN/GLOBULIN RATIO 0.93 (1.00-1.93); ALKALINE PHOSPHATASE 54 U/L (45-117); ALT/SGPT 27 U/L (12-78); ANION GAP 8 MEQ/L (8-16); AST/SGOT 18 U/L (7-37); BILIRUBIN,TOTAL 0.8 MG/DL (0.2-1.0); BLOOD UREA NITROGEN 9 MG/DL (7-18); CALCIUM LEVEL 8.8 MG/DL (8.5-10.1); CARBON DIOXIDE LEVEL 30 MEQ/L (21-32); CHLORIDE LEVEL 101 MEQ/L (98-107); CREATININE FOR GFR 0.94 MG/DL (0.70-1.30); GLOMERULAR FILTRATION RATE > 60.0 (>60); GLUCOSE, FASTING 92 MG/DL (70-105); POTASSIUM SERUM 4.1 MEQ/L (3.5-5.1); SODIUM LEVEL 139 MEQ/L (136-145); TOTAL PROTEIN 7.9 GM/DL (6.4-8.2)
[2017-08-28] MEDS ORDERED: ISOVUE-370 76% 100ML VIAL (Q9967) As Ordered ONE (12:54)
--- NOTE | 2017-08-28 14:52 | REP ---
CT PELVIS WITH IV CONTRAST: CT pelvis performed with 100 mL of Isovue 370 contrast. Sagittal and coronal reconstruction images are performed. In the posterior perianal region predominantly on the left side there edema and focal phlegmonous change. There does appear to be a small fluid collection consistent with an abscess measuring approximately 17 x 12 mm. Just inferior to that is a separate 1 cm pocket of fluid. A mildly enlarged right external iliac lymph node measures 1.4 cm in short axis. Other smaller bilateral inguinal lymph nodes are present. Urinary bladder is unremarkable. Remaining pelvic structures are essentially unremarkable. There are metallic clips in the right lower quadrant near the cecum. Visualized osseous structures are unremarkable. IMPRESSION: Posterior perianal phlegmonous change with two small pockets of fluid likely representing small abscess collections. Signed by Toan Abdi MD 08/28/2017 05:27 P
[2017-08-28] MEDS ORDERED: BACT800T5 PO (15:26)
[2017-08-28 16:02] VITALS: BP 149/98
== END 2017-08-28 16:22 | disposition home or self-care (01) ==
LOC: M ED 10:26
DX: K61.0 Anal abscess (principal)
CPT/HCPCS: 72193; 80053; 85025; 96374; 99284; Q9967

== ENCOUNTER 2017-12-21 13:20 | Emergency (ER) | payer OTHER | END 2017-12-21 15:41 | disposition home or self-care (01) | LOC: M ED 13:20 | DX: S46.811A Strain of other muscles, fascia and tendons at shoulder and upper arm level, right arm, initial encounter (principal); X50.0XXA Overexertion from strenuous movement or load, initial encounter; Y92.89 Other specified places as the place of occurrence of the external cause | CPT/HCPCS: 99283 ==

== ENCOUNTER 2018-01-08 12:03 | Emergency (ER) | payer OTHER | END 2018-01-08 14:56 | disposition home or self-care (01) | LOC: M ED 12:03 | DX: S60.151A Contusion of right little finger with damage to nail, initial encounter (principal); W22.09XA Striking against other stationary object, initial encounter; Y92.89 Other specified places as the place of occurrence of the external cause | CPT/HCPCS: 73130 ==

== ENCOUNTER 2018-03-05 07:36 | Emergency (ER) | payer OTHER | END 2018-03-05 08:51 | disposition home or self-care (01) | LOC: M ED 07:36 | DX: J06.9 Acute upper respiratory infection, unspecified (principal) | CPT/HCPCS: 99282 ==

== ENCOUNTER 2018-03-08 07:37 | Emergency (ER) | payer OTHER ==
[2018-03-08] MEDS: IPRATROPIUM 0.5MG/ALBUTEROL 2.5MG INH SOL UD 3ML (DUONEB)(J7620) NEB (08:38)
== END 2018-03-08 09:25 | disposition home or self-care (01) ==
LOC: M ED 07:37
DX: J45.901 Unspecified asthma with (acute) exacerbation (principal); J20.9 Acute bronchitis, unspecified; G47.33 Obstructive sleep apnea (adult) (pediatric); Z79.2 Long term (current) use of antibiotics; Z79.899 Other long term (current) drug therapy
CPT/HCPCS: 71046

== ENCOUNTER → 2020-02-10 | Outpatient (CLI) | payer OTHER, SELFPAY ==
[~2020-02-10] MED LIST changes: +BACT800T5 PO; +CEFD1CAP8; +IBUP-1022 PO; +MAGICMW SSP; +MUCI600T31 PO; +PREPPAD EX; +ROBA500T PO; +TESS100C PO; +VENTAER INH; +ZITHTAB PO; +ZOFR4TAB14 PO; -ZOFR4TAB3 PO
== END ==
LOC: M LABSMTC 12:33
PROVIDERS: ATTEND Family Medicine
DX: Z11.59 Encounter for screening for other viral diseases (principal); Z03.818 Encounter for observation for suspected exposure to other biological agents ruled out
CPT/HCPCS: C9803; U0003

== ENCOUNTER → 2020-07-05 | Outpatient (REF) | payer SELFPAY ==
[2020-07-05 16:56] LABS: APPEARANCE, URINE CLEAR (CLEAR); BACTERIA, URINE AUTO NEGATIVE (NEGATIVE); BILIRUBIN, URINE AUTO NEGATIVE (NEGATIVE); BLOOD, URINE BLOOD NEGATIVE (NEGATIVE); COLOR, URINE YELLOW (YELLOW); GLUCOSE, URINE (UA) AUTO NEGATIVE (NEGATIVE); KETONE, URINE AUTO NEGATIVE (NEGATIVE); LEUKOCYTE ESTERASE, URINE AUTO NEGATIVE (NEGATIVE); MUCUS, URINE SMALL (NEGATIVE); NITRITE, URINE AUTO NEGATIVE (NEGATIVE); PROTEIN, URINE AUTO NEGATIVE (NEGATIVE); RBC, URINE AUTO 0 /HPF (0-3); SPECIFIC GRAVITY URINE AUTO 1.024 (1.002-1.035); SQUAMOUS EPITHELIAL CELL UR AU 0 /HPF (0-6); UROBILINOGEN, URINE AUTO 0.2 mg/dL (0.0-2.0); WBC, URINE AUTO 1 /HPF (0-3)
== END ==
LOC: M LAB REF 16:19
PROVIDERS: ATTEND Physician Assistant Medical
DX: N39.0 Urinary tract infection, site not specified (principal)

== ENCOUNTER → 2020-08-27 | Outpatient (REF) | payer OTHER, SELFPAY | LOC: M LAB REF 19:25 | PROVIDERS: ATTEND Physician Assistant | DX: Z20.828 Contact with and (suspected) exposure to other viral communicable diseases (principal); Z11.59 Encounter for screening for other viral diseases ==

== ENCOUNTER → 2020-12-29 | Outpatient (CLI) | payer SELFPAY | LOC: M LABSMTC 11:54 | PROVIDERS: ATTEND Pediatrics | DX: Z20.822 Contact with and (suspected) exposure to COVID-19 (principal) ==

== ENCOUNTER 2021-08-04 21:34 | Inpatient (IN) | payer OTHER, SELFPAY ==
[~2021-08-04] VITALS: Ht 177.8 cm; Wt 120.7 kg
[~2021-08-04 21:34] MED LIST changes: -CEFD1CAP8; +CEFD300C41
[2021-08-04] MEDS ORDERED: KETOROLAC 30 MG/ML 1ML VIAL IV ONE (22:25)
[2021-08-04] MEDS ORDERED: methylPREDNISolone 125MG 2ML VIAL IV ONE (22:25)
[2021-08-04] MEDS ORDERED: ACETAMINOPHEN TAB 650MG DOSE (2X325MG) PO ONE (22:25)
[2021-08-04] MEDS ORDERED: COMBIVENT RESPIMAT 100-20MCG INHALER 4GM INH SCH (22:25)
[2021-08-04 23:23] LABS: BASO % 0.7 % (0.0-1.0); EOS % 0.2 % (0.0-3.0); HEMATOCRIT 45.8 % (42.0-52.0); HEMOGLOBIN 15.5 g/dl (13.5-17.5); LYMPH % 22.1 % (24.0-44.0); MEAN CORPUSCULAR HEMOGLOBIN 28.9 pg (27.0-33.0); MEAN CORPUSCULAR HGB CONC 33.8 g/dl (32.0-36.5); MEAN CORPUSCULAR VOLUME 85.4 fl (80.0-96.0); MONO # 0.4 10^3/uL (0.0-0.8); MONO % 8.3 % (2.0-8.0); NEUTROPHILS % 67.6 % (36.0-66.0); PLATELET COUNT, AUTOMATED 220 10^3/uL (150-450); RED BLOOD COUNT 5.36 10^6/uL (4.30-6.10); WHITE BLOOD COUNT 4.5 10^3/uL (4.0-10.0)
[2021-08-04 23:24] LABS: VENOUS BASE EXCESS 0.9 (-2.0-2.0); VENOUS HCO3 25.4 MEQ/L (23.0-27.0); VENOUS O2 SATURATION 55.5 % (60.0-80.0); VENOUS PARTIAL PRESSURE CO2 40.1 mmHg (38.0-50.0); VENOUS PARTIAL PRESSURE O2 26.7 mmHg (30.0-50.0); VENOUS PH 7.419 UNITS (7.330-7.430); VENOUS STANDARD HCO3 24.1 MEQ/L; VENOUS TOTAL CO2 26.6 MEQ/L (24.0-28.0)
[2021-08-04 23:52] LABS: ALBUMIN 3.4 GM/DL (3.2-5.2); ALT/SGPT 34 U/L (12-78); BILIRUBIN,DIRECT 0.3 MG/DL (0.0-0.2); BILIRUBIN,TOTAL 0.7 MG/DL (0.2-1.0); BLOOD UREA NITROGEN 17 MG/DL (7-18); CALCIUM LEVEL 8.3 MG/DL (8.5-10.1); CARBON DIOXIDE LEVEL 29 MEQ/L (21-32); CHLORIDE LEVEL 100 MEQ/L (98-107); CREATININE FOR GFR 1.21 MG/DL (0.70-1.30); GLOMERULAR FILTRATION RATE > 60.0 (>60); GLUCOSE, FASTING 104 MG/DL (70-100); SODIUM LEVEL 137 MEQ/L (136-145); TOTAL PROTEIN 7.5 GM/DL (6.4-8.2)
[2021-08-05 00:05] LABS: RSV AMPLIFICATION NEGATIVE (NEGATIVE)
[2021-08-05] MEDS ORDERED: ZINC1TAB2 PO (01:59)
[2021-08-05] MEDS ORDERED: C 50TAB PO (01:59)
[2021-08-05] MEDS ORDERED: D31000TA2 PO (01:59)
[2021-08-05] MEDS ORDERED: HOME MED LIST COMPLETE! XX SCH (02:00)
[2021-08-05] MEDS ORDERED: guaiFENesin 200 MG TAB PO PRN (02:15)
[2021-08-05] MEDS ORDERED: COMBIVENT RESPIMAT 100-20MCG INHALER 4GM INH PRN (02:15)
[2021-08-05] MEDS ORDERED: ACETAMINOPHEN TAB 650MG DOSE (2X325MG) PO PRN (02:15)
[2021-08-05] MEDS ORDERED: NS 1,000 ML IV ONE (02:15)
[2021-08-05] MEDS ORDERED: ONDANSETRON 4 MG ORAL DISINTEGRATING TAB PO PRN (02:20)
[2021-08-05 04:49] LABS: INR 1.08; PROTHROMBIN TIME 14.4 SECONDS (12.7-14.5)
[2021-08-05 04:50] LABS: PARTIAL THROMBOPLASTIN TIME 33.2 SECONDS (25.9-37.0)
[2021-08-05] MEDS ORDERED: REMDESIVIR 200 MG in NS 250 ML IV ONE (06:00)
[2021-08-05] MEDS ORDERED: SODIUM CHLORIDE 0.9% INJ 10 ML SYR IV ONE (08:00)
[2021-08-05] MEDS: ASPIRIN 81MG ENTERIC TABLET PO SCH (08:52)
[2021-08-05] MEDS: dexameTHASONE 4 MG/ML 1ML VIAL (J1100 PER 1MG) IV SCH (08:52)
[2021-08-05] MEDS: ENOXAPARIN 40MG/0.4ML SYRINGE (J1650 PER 10MG) SC SCH (08:53)
[2021-08-05 10:00] VITALS: BP 151/79; O2SAT 94
[2021-08-05 14:00] VITALS: BP 138/83
[2021-08-05 20:00] VITALS: BP 143/95; O2SAT 90
[2021-08-06] VITALS (8 sets, daily range): BP systolic 115–124; BP diastolic 74–82; O2SAT 90–94
[2021-08-06] MEDS ORDERED: REMDESIVIR 100 MG in NS 250 ML IV SCH (06:00)
[2021-08-06] MEDS ORDERED: SODIUM CHLORIDE 0.9% INJ 10 ML SYR IV SCH (07:00)
[2021-08-06 08:40] LABS: BASO % 0.2 % (0.0-1.0); HEMATOCRIT 43.8 % (42.0-52.0); HEMOGLOBIN 14.7 g/dl (13.5-17.5); LYMPH # 0.9 10^3/uL (1.5-5.0); LYMPH % 7.8 % (24.0-44.0); MEAN CORPUSCULAR HEMOGLOBIN 29.3 pg (27.0-33.0); MEAN CORPUSCULAR HGB CONC 33.6 g/dl (32.0-36.5); MEAN CORPUSCULAR VOLUME 87.4 fl (80.0-96.0); MONO # 0.8 10^3/uL (0.0-0.8); MONO % 6.7 % (2.0-8.0); NEUTROPHILS % 84.2 % (36.0-66.0); PLATELET COUNT, AUTOMATED 283 10^3/uL (150-450); RED BLOOD COUNT 5.01 10^6/uL (4.30-6.10); WHITE BLOOD COUNT 11.9 10^3/uL (4.0-10.0)
[2021-08-06 09:01] LABS: ALBUMIN 2.9 GM/DL (3.2-5.2); ALT/SGPT 28 U/L (12-78); BILIRUBIN,DIRECT 0.2 MG/DL (0.0-0.2); BILIRUBIN,TOTAL 0.5 MG/DL (0.2-1.0); BLOOD UREA NITROGEN 19 MG/DL (7-18); CALCIUM LEVEL 8.7 MG/DL (8.5-10.1); CARBON DIOXIDE LEVEL 26 MEQ/L (21-32); CHLORIDE LEVEL 108 MEQ/L (98-107); CREATININE FOR GFR 0.97 MG/DL (0.70-1.30); GLOMERULAR FILTRATION RATE > 60.0 (>60); GLUCOSE, FASTING 178 MG/DL (70-100); MAGNESIUM LEVEL 2.5 MG/DL (1.8-2.4); SODIUM LEVEL 142 MEQ/L (136-145); TOTAL PROTEIN 7.5 GM/DL (6.4-8.2)
[2021-08-06] MEDS: ASPIRIN 81MG ENTERIC TABLET PO SCH (09:12)
[2021-08-06] MEDS: dexameTHASONE 4 MG/ML 1ML VIAL (J1100 PER 1MG) IV SCH (09:13)
[2021-08-06] MEDS: ENOXAPARIN 40MG/0.4ML SYRINGE (J1650 PER 10MG) SC SCH (09:13)
[2021-08-06] MEDS ORDERED: BENZONATATE 100MG CAPSULE PO PRN (17:05)
[2021-08-06] MEDS ORDERED: DEXTROMETHORPHAN 60MG/10ML SUSP 90ML BTL(DELSYM) PO PRN (18:05)
[2021-08-07] VITALS (7 sets, daily range): BP systolic 130–144; BP diastolic 86–91; O2SAT 92–95
[2021-08-07 06:08] LABS: HEMATOCRIT 42.2 % (42.0-52.0); HEMOGLOBIN 13.8 g/dl (13.5-17.5); MEAN CORPUSCULAR HEMOGLOBIN 28.9 pg (27.0-33.0); MEAN CORPUSCULAR HGB CONC 32.7 g/dl (32.0-36.5); MEAN CORPUSCULAR VOLUME 88.3 fl (80.0-96.0); PLATELET COUNT, AUTOMATED 300 10^3/uL (150-450); RED BLOOD COUNT 4.78 10^6/uL (4.30-6.10); WHITE BLOOD COUNT 7.6 10^3/uL (4.0-10.0)
[2021-08-07 06:27] LABS: ALBUMIN 2.8 GM/DL (3.2-5.2); ALT/SGPT 26 U/L (12-78); BILIRUBIN,DIRECT 0.2 MG/DL (0.0-0.2); BILIRUBIN,TOTAL 0.5 MG/DL (0.2-1.0); BLOOD UREA NITROGEN 21 MG/DL (7-18); CALCIUM LEVEL 8.5 MG/DL (8.5-10.1); CARBON DIOXIDE LEVEL 27 MEQ/L (21-32); CHLORIDE LEVEL 107 MEQ/L (98-107); CREATININE FOR GFR 0.91 MG/DL (0.70-1.30); FERRITIN 901 NG/ML (26-388); GLOMERULAR FILTRATION RATE > 60.0 (>60); GLUCOSE, FASTING 175 MG/DL (70-100); LDH LACTATE DEHYDROGENASE 306 U/L (87-241); NT-PRO BNP 158 PG/ML (<125); POTASSIUM SERUM 4.3 MEQ/L (3.5-5.1); SODIUM LEVEL 141 MEQ/L (136-145); TOTAL PROTEIN 7.2 GM/DL (6.4-8.2)
[2021-08-07 06:32] LABS: INR 1.09; PROTHROMBIN TIME 14.5 SECONDS (12.7-14.5)
[2021-08-07 06:33] LABS: PARTIAL THROMBOPLASTIN TIME 27.7 SECONDS (25.9-37.0)
[2021-08-07 07:31] LABS: ATYPICAL LYMPH 3 % (0-5); LYMPHOCYTES 11 % (16-44); METAMYELOCYTES 1 % (0-0); MONOCYTES 9 % (0-5); MYELOCYTES 1 % (0-0); NEUTROPHILS 72 % (28-66)
[2021-08-07 07:32] LABS: PLATELET ESTIMATE NORMAL (NORMAL)
[2021-08-07] MEDS: ASPIRIN 81MG ENTERIC TABLET PO SCH (09:36)
[2021-08-07] MEDS: dexameTHASONE 4 MG/ML 1ML VIAL (J1100 PER 1MG) IV SCH (09:37)
[2021-08-07] MEDS: ENOXAPARIN 40MG/0.4ML SYRINGE (J1650 PER 10MG) SC SCH (09:37)
[2021-08-07] MEDS ORDERED: REMDESIVIR 100 MG in NS 250 ML IV SCH (11:30)
[2021-08-07] MEDS ORDERED: SODIUM CHLORIDE 0.9% INJ 10 ML SYR IV SCH (12:30)
[2021-08-08 04:00] VITALS: BP 151/91
[2021-08-08 08:30] LABS: BLOOD UREA NITROGEN 21 MG/DL (7-18); CALCIUM LEVEL 8.6 MG/DL (8.5-10.1); CARBON DIOXIDE LEVEL 31 MEQ/L (21-32); CHLORIDE LEVEL 106 MEQ/L (98-107); GLOMERULAR FILTRATION RATE > 60.0 (>60); GLUCOSE, FASTING 164 MG/DL (70-100); MAGNESIUM LEVEL 2.7 MG/DL (1.8-2.4); POTASSIUM SERUM 5.1 MEQ/L (3.5-5.1); SODIUM LEVEL 143 MEQ/L (136-145)
[2021-08-08] MEDS: dexameTHASONE 4 MG/ML 1ML VIAL (J1100 PER 1MG) IV SCH (09:00)
[2021-08-08] MEDS: ENOXAPARIN 40MG/0.4ML SYRINGE (J1650 PER 10MG) SC SCH (09:00)
[2021-08-08] MEDS: ASPIRIN 81MG ENTERIC TABLET PO SCH (09:00)
[2021-08-08] MEDS ORDERED: Dextromethorphan Adult 12HR PO (09:30)
[2021-08-08] MEDS ORDERED: DEXA6TAB PO (09:30)
[2021-08-08] MEDS ORDERED: GUAI20TA PO (09:44)
[2021-08-08] MEDS ORDERED: PRED10TA2 PO (13:57)
[2021-08-08 14:00] VITALS: BP 145/82
== END 2021-08-08 16:05 | disposition home or self-care (01) | DRG 137 ==
LOC: M ED 21:34 → ENRESERV 08-05 07:46 → M 4MAIN 08-05 10:02
PROVIDERS: ADMIT Internal Medicine; ATTEND Internal Medicine
DX: U07.1 COVID-19 (principal); J12.82 Pneumonia due to coronavirus disease 2019; G47.33 Obstructive sleep apnea (adult) (pediatric)

== ENCOUNTER → 2021-08-24 | Outpatient (CLI) | payer OTHER ==
[~2021-08-24] MED LIST changes: +C 50TAB PO; +CEFD1CAP8; -CEFD300C41; +D31000TA2 PO; +DEXA6TAB PO; +Dextromethorphan Adult 12HR PO; +GUAI20TA PO; +PRED10TA2 PO; +ZINC1TAB2 PO
--- NOTE | 2021-08-24 15:30 | REP ---
INDICATION: COUGH COVID+ 2 WEEKS AGO COMPARISON: 08/04/2021 TECHNIQUE: PA and lateral. FINDINGS: The mediastinum and cardiac silhouette are normal. The lung cealya are well aerated without obvious focal consolidation. No effusion or pneumothorax.. The skeletal structures are intact and normal. IMPRESSION: Lung celaya demonstrate improved aeration. No focal consolidation or effusion appreciated. <Electronically signed by Tommy Booker > 08/24/21 [id number]
== END ==
LOC: M RAD 15:05
PROVIDERS: ATTEND Physician Assistant
DX: U07.1 COVID-19 (principal); R05.9 Cough, unspecified

== ENCOUNTER → 2022-01-16 | Outpatient (CLI) | payer OTHER ==
[~2022-01-16] MED LIST changes: -CEFD1CAP8; +CEFD300C41; -D31000TA2 PO; +VITA100093 PO
== END ==
LOC: M RAD 16:04
PROVIDERS: ATTEND Physician Assistant Medical
DX: M51.36 Other intervertebral disc degeneration, lumbar region (principal); M48.061 Spinal stenosis, lumbar region without neurogenic claudication

== ENCOUNTER 2022-04-19 15:14 | Outpatient (RCR) | payer OTHER | END 2022-05-10 | LOC: M PT 15:14 | PROVIDERS: ATTEND Nurse Practitioner Family | DX: M54.50 Low back pain, unspecified (principal) ==

== ENCOUNTER → 2022-05-17 | Outpatient (CLI) | payer OTHER | LOC: M RAD 14:28 | PROVIDERS: ATTEND Nurse Practitioner Family | DX: R06.2 Wheezing (principal); J02.9 Acute pharyngitis, unspecified ==

== ENCOUNTER → 2022-07-04 | Outpatient (REF) | payer OTHER | LOC: M SFHCDERM 12:34 | PROVIDERS: ATTEND Nurse Practitioner Family | DX: D22.62 Melanocytic nevi of left upper limb, including shoulder (principal) ==

== ENCOUNTER → 2023-02-16 | Outpatient (REF) | payer OTHER | LOC: M LAB REF 16:19 | PROVIDERS: ATTEND Physician Assistant | DX: J02.9 Acute pharyngitis, unspecified (principal) ==

== ENCOUNTER 2023-08-16 11:20 | Emergency (ER) | payer OTHER ==
[~2023-08-16] VITALS: Ht 177.8 cm; Wt 124.1 kg
[~2023-08-16 11:20] MED LIST changes: +CEFD1CAP9; -CEFD300C41
[2023-08-16] MEDS ORDERED: KETOROLAC 60MG 2ML VIAL IM ONE (13:20)
[2023-08-16] MEDS ORDERED: methocarbamoL 500 MG TAB PO ONE (13:20)
[2023-08-16] MEDS ORDERED: predniSONE 20 MG TAB PO ONE (13:20)
[2023-08-16] MEDS ORDERED: PRED20TA PO (13:47)
[2023-08-16] MEDS ORDERED: IBUP-1022 PO (13:47)
[2023-08-16] MEDS ORDERED: METH-1164 PO (13:47)
[2023-08-16 13:52] VITALS: BP 160/110; TEMP 98.6; O2SAT 96
== END 2023-08-16 13:54 | disposition home or self-care (01) ==
LOC: M ED 11:20
DX: M54.31 Sciatica, right side (principal); I10 Essential (primary) hypertension; K21.9 Gastro-esophageal reflux disease without esophagitis; Z79.52 Long term (current) use of systemic steroids; Z79.899 Other long term (current) drug therapy
CPT/HCPCS: 72110; 96372; 99283; J1885; J7512

== ENCOUNTER → 2025-05-07 | Outpatient (REF) | payer OTHER ==
[~2025-05-07] MED LIST changes: -IBUP-1022 PO; +IBUP600T42 PO; +METH-1164 PO; +PRED20TA PO
[2025-05-07 15:05] LABS: BASO # 0.1 10^3/uL (0.0-0.2); BASO % 1.1 % (0.0-1.0); EOS # 0.2 10^3/uL (0.0-0.5); EOS % 3.2 % (0.0-3.0); LYMPH # 1.9 10^3/uL (1.5-5.0); LYMPH % 33.9 % (24.0-44.0); MONO # 0.7 10^3/uL (0.0-0.8); MONO % 13.4 % (2.0-8.0); NEUTROPHILS # 2.6 10^3/uL (1.5-8.5); NEUTROPHILS % 47.5 % (36.0-66.0); PLATELET COUNT, AUTOMATED 244 10^3/uL (150-450)
[2025-05-07 15:11] LABS: C REACTIVE PROTEIN QUANTITATIV < 0.50 MG/DL (<1.0)
[2025-05-07 15:12] LABS: ALT/SGPT 50 U/L (7.0-40); AST/SGOT 26 U/L (<34); CALCIUM LEVEL 9.5 MG/DL (8.5-10.1); CARBON DIOXIDE LEVEL 30 MMOL/L (20-31); CHLORIDE LEVEL 102 MMOL/L (98-107); CHOLESTEROL LEVEL 189 MG/DL (<200); CHOLESTEROL RISK RATIO 4.44 (<5); CREATININE FOR GFR 0.86 MG/DL (0.70-1.30); GLOMERULAR FILTRATION RATE > 90.0 (>60); LDL CHOLESTEROL 94.5 MG/DL (<100); NON-HDL-C 146.5 MG/DL; POTASSIUM SERUM 4.9 MMOL/L (3.5-5.1); SODIUM LEVEL 142 MMOL/L (136-145); TRIGLYCERIDES LEVEL 260 MG/DL (<150)
[2025-05-07 15:14] LABS: TOTAL 25(OH) VITAMIN D 26.6 NG/ML (20.0-100.0)
[2025-05-07 15:24] LABS: ESTIMATED AVERAGE GLUCOSE 137.0 MG/DL (60-110)
== END ==
LOC: M LAB REF 12:11
PROVIDERS: ATTEND Physician Assistant
DX: L05.91 Pilonidal cyst without abscess (principal); E66.9 Obesity, unspecified; E55.9 Vitamin D deficiency, unspecified

== ENCOUNTER → 2025-05-18 | Outpatient (CLI) | payer OTHER | LOC: M RAD 10:30 | PROVIDERS: ATTEND Physician Assistant | DX: L05.91 Pilonidal cyst without abscess (principal) ==

== ENCOUNTER → 2025-06-17 | Outpatient (CLI) | payer OTHER | LOC: M RAD 12:39 | PROVIDERS: ATTEND Physician Assistant | DX: M25.512 Pain in left shoulder (principal); M25.511 Pain in right shoulder ==

== ENCOUNTER 2025-07-31 07:27 | Day surgery (SDC) | payer OTHER ==
[~2025-07-31] VITALS: Ht 177.8 cm; Wt 112.7 kg
[2025-07-31] MEDS ORDERED: ONDANSETRON 4MG/2ML VIAL As Ordered ONE (07:55)
[2025-07-31] MEDS ORDERED: LIDOCAINE 2% 100 MG/5 ML SDV (FOR ANES.) As Ordered ONE (07:55)
[2025-07-31] MEDS ORDERED: MIDAZOLAM INJ 2 MG/2 ML VIAL As Ordered ONE (07:55)
[2025-07-31] MEDS ORDERED: dexAMETHasone 4 MG/ML 1 ML VIAL As Ordered ONE (07:55)
[2025-07-31] MEDS ORDERED: ACETAMINOPHEN 1000MG/100ML IV BAG As Ordered ONE (07:55)
[2025-07-31] MEDS ORDERED: dexmedeTOMIDine (4 MCG/ML) 200 MCG/50 ML BTL As Ordered ONE (07:55)
[2025-07-31] MEDS ORDERED: KETOROLAC 30 MG/ML 1 ML VIAL As Ordered ONE (08:11)
[2025-07-31] MEDS: CelecoXIB 400 MG CAP PO ONE (08:31)
[2025-07-31] MEDS: LR 1,000 ML IV SCH (08:31)
[2025-07-31] MEDS: ceFAZolin SOD 2 GM IV ONCE IV ONE (08:56)
[2025-07-31] MEDS ORDERED: ROCURONIUM BROMIDE 50MG/5ML VIAL As Ordered ONE (09:13)
[2025-07-31] MEDS ORDERED: SUGAMMADEX SODIUM 500 MG/5 ML VIAL As Ordered ONE (09:13)
[2025-07-31] MEDS ORDERED: PHENYLephrine 500MCG 5ML (100MCG/ML) SYRINGE As Ordered ONE (09:19)
[2025-07-31] MEDS: LIDOCAINE 1% SDV 30 ML VIAL As Ordered ONE (10:00)
[2025-07-31] MEDS ORDERED: MORPHINE 2 MG/ML 1 ML VIAL IV PRN (10:20)
[2025-07-31] MEDS: ONDANSETRON 4MG/2ML VIAL IV PRN (10:27)
[2025-07-31 11:30] VITALS: BP 145/88; TEMP 98.3
== END 2025-07-31 11:35 | disposition home or self-care (01) ==
LOC: M SDC 07:27
PROVIDERS: ATTEND Surgery
DX: L05.91 Pilonidal cyst without abscess (principal); Z90.49 Acquired absence of other specified parts of digestive tract
CPT/HCPCS: 11770; 88304; J0131; J0665; J0688; J1100; J2250; J2371; J2405; J2765; J3010